=== PATIENT | female | born 1975 | race Caucasian/White ===

== ENCOUNTER 2019-11-13 09:54 | Outpatient (CLI) | payer OTHER, SELFPAY ==
--- NOTE | ~2019-11-13 | XR_ITS ---
EXAMINATION: XR lumbar spine 2-3V DATE: 11/13/2019 10:33 INDICATION: Synovial cyst of lumbar spine. Lumbar radiculopathy. TECHNIQUE: Flexion-extension views of lumbar spine were obtained. COMPARISON: None. FINDINGS: There is 4 mm anterolisthesis of L4 on L5. Vertebral body heights are normal. There is no a bnormal motion with flexion or extension. There is mildly decreased disc height at L4-L5. There is mo derate to severe facet joint osteoarthritis in lower lumbar spine. IMPRESSION: 1. Mild lumbar spondylosis. Reviewed, dictated and finalized at location A. MARKETING SPECIALIST IMPRESSION: 1. Mild lumbar spondylosis.
== END 2019-11-13 09:55 | disposition home or self-care (01) ==
PROVIDERS: Visit Provider Neurological Surgery
DX: M71.38 Other bursal cyst, other site (principal); M47.26 Other spondylosis with radiculopathy, lumbar region; M43.16 Spondylolisthesis, lumbar region
CPT/HCPCS: 72100